=== PATIENT | female | born 1995 | race Caucasian/White ===

== ENCOUNTER → 2017-10-03 | Outpatient (CLI) | payer BC ==
[2017-10-03 15:03] LABS: BASOPHILS ABSOLUTE AUTO 0.05 K/mm3 (0.00-0.23); BASOPHILS PERCENT AUTO 1 % (0-2); EOSINOPHILS PERCENT AUTO 1 % (0-6); Hematocrit 44.7 % (33.0-51.0); Hemoglobin 14.8 g/dL (11.5-16.0); IMMATURE GRAN ABSOLUTE AUTO 0.03 K/mm3 (0.00-0.10); IMMATURE GRAN PERCENT AUTO 0 % (0-1); LYMPHOCYTES ABSOLUTE AUTO 2.53 K/mm3 (0.84-5.20); LYMPHOCYTES PERCENT AUTO 24 % (21-46); MONOCYTES ABSOLUTE AUTO 0.68 K/mm3 (0.16-1.47); MONOCYTES PERCENT AUTO 6 % (4-13); Mean Corpuscular HGB 29.1 pg (26.0-34.0); Mean Corpuscular HGB Conc 33.1 g/dL (31.5-36.5); Mean Corpuscular Volume 88 fL (80-100); Mean Platelet Volume 10.3 fL (9.1-12.4); NEUTROPHILS ABSOLUTE AUTO 7.28 K/mm3 (1.96-9.15); NEUTROPHILS PERCENT AUTO 68 % (41-73); Platelet Count 347 K/mm3 (150-400); RDW Standard Deviation 38.8 fL (35.1-46.3); Red Blood Cell Count 5.09 M/mm3 (3.80-5.20); White Blood Cell Count 10.67 K/mm3 (4.00-11.30)
== END | disposition home or self-care (01) ==
LOC: LAB SHORT 12:20 → LAB 12:20
PROVIDERS: Advanced Practice Midwife
DX: Z11.3 Encounter for screening for infections with a predominantly sexual mode of transmission (principal); R53.83 Other fatigue
CPT/HCPCS: 84443; 85025

== ENCOUNTER → 2017-10-14 | Outpatient (CLI) | payer BC ==
[2017-10-14 12:17] LABS: Source, Urine Clean Catch
[2017-10-14 13:36] LABS: Bilirubin, Urine Neg (Neg); Blood, Urine Neg (Neg); Glucose Qualitative, Urine Neg (Neg); Ketones, Urine Neg (Neg); Leukocyte Esterase, Urine Neg (Neg); Nitrite, Urine Neg (Neg); Protein, Urine Neg (Neg); Specific Gravity, Urine 1.005 (1.003-1.022); Urobilinogen, Urine NORM (Normal)
[2017-10-14 13:42] LABS: Appearance, Urine Clear (Clear); Color, Urine Yellow (P-Yellow)
== END ==
LOC: LAB 10:47 → LAB SHORT 10:47
PROVIDERS: Advanced Practice Midwife
DX: R30.0 Dysuria (principal)
CPT/HCPCS: 81003; 87086

== ENCOUNTER → 2017-11-25 | Outpatient (CLI) | payer BC | END | disposition home or self-care (01) | LOC: LAB SHORT 09:07 → LAB 09:07 | DX: J02.9 Acute pharyngitis, unspecified (principal); R59.9 Enlarged lymph nodes, unspecified | CPT/HCPCS: 87070 ==

== ENCOUNTER → 2019-07-12 | Outpatient (CLI) | payer BC | END | disposition home or self-care (01) | LOC: LAB 11:20 → LAB SHORT 11:20 | PROVIDERS: Advanced Practice Midwife | DX: Z01.419 Encounter for gynecological examination (general) (routine) without abnormal findings (principal) | CPT/HCPCS: 87624; 87625; G0123 ==

== ENCOUNTER → 2019-08-01 | Outpatient (CLI) | payer BC | END | disposition home or self-care (01) | LOC: PLD 08:57 → LAB SHORT 08:57 | DX: N72 Inflammatory disease of cervix uteri (principal) | CPT/HCPCS: 88305; 88342 ==

== ENCOUNTER → 2020-01-16 | Outpatient (CLI) | payer BC ==
[2020-01-16 13:53] LABS: Source, Urine Clean Catch
[2020-01-16 15:52] LABS: Bacteria Few /hpf; Red Blood Cells, Urine 0-2 /hpf (0-2); Squamous Epithelial Cells Few /hpf (Few); White Blood Cells, Urine 0-2 /hpf (0-5)
== END | disposition home or self-care (01) ==
LOC: LAB 09:09 → LAB SHORT 09:09
PROVIDERS: Obstetrics & Gynecology
DX: Z34.01 Encounter for supervision of normal first pregnancy, first trimester (principal)
CPT/HCPCS: 81015; 87086

== ENCOUNTER → 2020-03-11 | Outpatient (CLI) | payer BC ==
[~2020-03-11] MED LIST: MAGCHL64ER; PRENATAL TABLE1 EAC2 PO; Percocet 5-3251 EACH PO; Vitamin B-Comp1 EACH PO
[2020-03-13 03:11] LABS: CHLAMYDIA TRACHOMATIS, NAA Negative (Negative)
== END | disposition home or self-care (01) ==
LOC: LAB 13:07
PROVIDERS: Obstetrics & Gynecology
DX: Z11.3 Encounter for screening for infections with a predominantly sexual mode of transmission (principal)
CPT/HCPCS: 87491; 87591

== ENCOUNTER → 2020-07-10 | Outpatient (CLI) | payer BC ==
[2020-07-10 14:58] LABS: Source, Urine Clean Catch
[2020-07-10 17:23] LABS: Appearance, Urine Clear (Clear); Bilirubin, Urine Neg (Neg); Blood, Urine 1+ (Neg); Color, Urine Yellow (P-Yellow); Glucose Qualitative, Urine Neg (Neg); Ketones, Urine 2+ (Neg); Leukocyte Esterase, Urine 1+ (Neg); Nitrite, Urine Neg (Neg); Protein, Urine Neg (Neg); Urobilinogen, Urine NORM (Normal)
[2020-07-10 17:38] LABS: Bacteria Mod /hpf; Red Blood Cells, Urine 0-2 /hpf (0-2); Squamous Epithelial Cells Mod /hpf (Few); White Blood Cells, Urine 0-2 /hpf (0-5)
== END | disposition home or self-care (01) ==
LOC: LAB SHORT 14:55
PROVIDERS: Obstetrics & Gynecology
DX: O09.93 Supervision of high risk pregnancy, unspecified, third trimester (principal)
CPT/HCPCS: 81001; 87086

== ENCOUNTER → 2020-07-29 | Outpatient (CLI) | payer BC | END | disposition home or self-care (01) | LOC: LAB SHORT 16:16 → LAB 16:16 | DX: O09.93 Supervision of high risk pregnancy, unspecified, third trimester (principal) | CPT/HCPCS: 87081; 87150 ==

== ENCOUNTER 2020-08-20 06:06 | Inpatient (IN) | payer BC ==
[~2020-08-20] VITALS: Ht 172.7 cm; Wt 113.3 kg
[~2020-08-20 06:06] MED LIST changes: -Percocet 5-3251 EACH PO
[2020-08-20 06:53] LABS: BASOPHILS ABSOLUTE AUTO 0.04 K/mm3 (0.00-0.23); BASOPHILS PERCENT AUTO 0 % (0-2); EOSINOPHILS ABSOLUTE AUTO 0.07 K/mm3 (0.00-0.68); EOSINOPHILS PERCENT AUTO 1 % (0-6); Hematocrit 41.8 % (33.0-51.0); Hemoglobin 14.5 g/dL (11.5-16.0); IMMATURE GRAN ABSOLUTE AUTO 0.05 K/mm3 (0.00-0.10); IMMATURE GRAN PERCENT AUTO 1 % (0-1); LYMPHOCYTES ABSOLUTE AUTO 1.93 K/mm3 (0.84-5.20); LYMPHOCYTES PERCENT AUTO 21 % (21-46); MONOCYTES ABSOLUTE AUTO 0.91 K/mm3 (0.16-1.47); MONOCYTES PERCENT AUTO 10 % (4-13); Mean Corpuscular HGB 29.7 pg (26.0-34.0); Mean Corpuscular HGB Conc 34.7 g/dL (31.5-36.5); Mean Corpuscular Volume 86 fL (80-100); Mean Platelet Volume 11.2 fL (9.1-12.4); NEUTROPHILS ABSOLUTE AUTO 6.29 K/mm3 (1.96-9.15); NEUTROPHILS PERCENT AUTO 68 % (41-73); Platelet Count 268 K/mm3 (150-400); RDW Coefficient Variation 12.9 % (11.7-14.2); RDW Standard Deviation 40.1 fL (35.1-46.3); Red Blood Cell Count 4.89 M/mm3 (3.80-5.20); White Blood Cell Count 9.29 K/mm3 (4.00-11.30)
--- NOTE | 2020-08-20 08:34 | NUR ---
08/20/20 0834 Nathalia Whalen 0821 DELIVERY VIABLE FEMALE INFANT IN THE BREECH POSITION, WEIGHT 2640GM, 5# 13 OZ, HEAD 13.5 INCHES, CHEST 12 INCHES, LENGHT 19.5 INCHES, APGARS 9/9, UMBILICAL CORD BLOOD COLLECTED FOR TYPE AND RH GIVEN TO Koki CUENCA RN
--- NOTE | 2020-08-20 09:35 | NUR ---
EPIDURAL CATHETER LOCKED AWAITNG EPIDURAL ORDERS FROM DR GAINES, CURRENTLY RATES PAIN 6/10
[2020-08-21 05:31] LABS: Hematocrit 37.1 % (33.0-51.0); Hemoglobin 12.5 g/dL (11.5-16.0); Mean Corpuscular HGB 29.8 pg (26.0-34.0); Mean Corpuscular HGB Conc 33.7 g/dL (31.5-36.5); Mean Corpuscular Volume 89 fL (80-100); Mean Platelet Volume 10.9 fL (9.1-12.4); Platelet Count 181 K/mm3 (150-400); RDW Coefficient Variation 13.2 % (11.7-14.2); RDW Standard Deviation 42.9 fL (35.1-46.3); Red Blood Cell Count 4.19 M/mm3 (3.80-5.20); White Blood Cell Count 10.95 K/mm3 (4.00-11.30)
[2020-08-22] MEDS ORDERED: Percocet 5-3251 EACH PO (13:35)
--- NOTE | 2020-08-22 14:38 | NUR ---
DISCHARGE TEACHING COMPLETED. ANSWERED ALL QUESTIONS AND CONCERNS. IV REMOVED. PRESCRIPTION GIVEN TO PATIENT. DISCHARGED HOME, DRIVEN BY SO. ALL PERSONAL BELONGINGS RETURNED TO PATIENT.
--- NOTE | 2020-08-22 14:41 | NUR ---
PPFU SCHEDULED FOR 08/25/2020 AT 0900.
== END 2020-08-22 15:00 | disposition home or self-care (01) | DRG 788 ==
LOC: BC 06:06
PROVIDERS: ADMIT Obstetrics & Gynecology
PROC: 10D00Z1 Extraction of Products of Conception, Low, Open Approach (ICD-10-PCS; principal; 2020-08-20 07:30)
DX: O32.1XX0 Maternal care for breech presentation, not applicable or unspecified (principal); Z3A.39 39 weeks gestation of pregnancy; Z37.0 Single live birth; O24.410 Gestational diabetes mellitus in pregnancy, diet controlled; O99.214 Obesity complicating childbirth; E66.9 Obesity, unspecified; O34.13 Maternal care for benign tumor of corpus uteri, third trimester; D25.2 Subserosal leiomyoma of uterus
CPT/HCPCS: 36415; 82947; 85025; 85027; 86850; 86900; 86901; A9270; J0690; J1885; J2001; J2250; J2590; J2704; J2765; J3010; J7120

== ENCOUNTER → 2020-10-07 | Outpatient (CLI) | payer BC ==
[~2020-10-07] MED LIST changes: +Percocet 5-3251 EACH PO
== END | disposition home or self-care (01) ==
LOC: LAB SHORT 13:46 → LAB 13:46
PROVIDERS: Obstetrics & Gynecology
DX: Z01.419 Encounter for gynecological examination (general) (routine) without abnormal findings (principal)
CPT/HCPCS: G0123

== ENCOUNTER → 2021-10-29 | Outpatient (CLI) | payer BC ==
[2021-10-30 07:50] LABS: Candida species (DNA Probe) Negative (NEGATIVE); G. vaginalis (DNA Probe) Negative (NEGATIVE); T. vaginalis (DNA Probe) Negative (NEGATIVE)
== END | disposition home or self-care (01) ==
LOC: LAB SHORT 16:15 → LAB 16:15
PROVIDERS: Obstetrics & Gynecology
DX: Z01.419 Encounter for gynecological examination (general) (routine) without abnormal findings (principal); N89.8 Other specified noninflammatory disorders of vagina
CPT/HCPCS: 87480; 87510; 87660

== ENCOUNTER 2023-08-08 05:28 | Inpatient (IN) | payer BC ==
[~2023-08-08] VITALS: Ht 172.7 cm; Wt 129.5 kg
[2023-08-08] VITALS (17 sets, daily range): BP systolic 103–143; BP diastolic 60–83
[2023-08-08] MEDS ORDERED: Oxytocin 10 Unit / ML Vial IM SCH (05:55)
[2023-08-08] MEDS ORDERED: Lidocaine HCl 1% 30 ML SDV XX SCH (05:55)
[2023-08-08] MEDS ORDERED: LR Oxytocin 20 Units 1,000 ML IV SCH ×3 (05:55→09:05)
[2023-08-08] MEDS ORDERED: Lactated Ringer's 1,000 ML IV PRN (05:55)
[2023-08-08] MEDS ORDERED: Misoprostol 200 MCG Tab PR SCH (05:55)
[2023-08-08] MEDS ORDERED: Bupivacaine HCl 2.5 MG/ML 10ML P/F Injection XX SCH (05:55)
[2023-08-08] MEDS ORDERED: Metoclopramide HCl 5MG / ML 2ML Vial IV ONE (05:55)
[2023-08-08] MEDS ORDERED: Castor Oil 59.146 ML BTL TOP SCH (05:55)
[2023-08-08] MEDS ORDERED: Methylergonovine Maleate 0.2MG / ML 1ML Amp IM SCH (05:55)
[2023-08-08] MEDS ORDERED: Citric Acid/Sodium Citrate 30 ML BTL PO SCH (05:55)
[2023-08-08] MEDS ORDERED: Lactated Ringer's 1,000 ML IV SCH ×2 (05:55→09:05)
[2023-08-08] MEDS ORDERED: Bupivacaine 0.5% HCl 5 MG/ML 30MLVIAL XX SCH (05:55)
[2023-08-08 06:11] LABS: BASOPHILS ABSOLUTE AUTO 0.04 K/mm3 (0.00-0.23); BASOPHILS PERCENT AUTO 0 % (0-2); EOSINOPHILS ABSOLUTE AUTO 0.08 K/mm3 (0.00-0.68); EOSINOPHILS PERCENT AUTO 1 % (0-6); Hematocrit 39.1 % (33.0-51.0); IMMATURE GRAN ABSOLUTE AUTO 0.08 K/mm3 (0.00-0.10); IMMATURE GRAN PERCENT AUTO 1 % (0-1); LYMPHOCYTES ABSOLUTE AUTO 2.26 K/mm3 (0.84-5.20); LYMPHOCYTES PERCENT AUTO 21 % (21-46); MONOCYTES ABSOLUTE AUTO 0.96 K/mm3 (0.16-1.47); MONOCYTES PERCENT AUTO 9 % (4-13); Mean Corpuscular HGB 27.4 pg (26.0-34.0); Mean Corpuscular HGB Conc 33.2 g/dL (31.5-36.5); Mean Corpuscular Volume 82 fL (80-100); Mean Platelet Volume 10.4 fL (9.1-12.4); NEUTROPHILS ABSOLUTE AUTO 7.49 K/mm3 (1.96-9.15); NEUTROPHILS PERCENT AUTO 69 % (41-73); Platelet Count 267 K/mm3 (150-400); RDW Coefficient Variation 13.2 % (11.7-14.2); RDW Standard Deviation 39.3 fL (35.1-46.3); Red Blood Cell Count 4.75 M/mm3 (3.80-5.20); White Blood Cell Count 10.91 K/mm3 (4.00-11.30)
[2023-08-08] MEDS ORDERED: CeFAZolin Sodium 2,000 MG in NS 100 ML IV PRN (06:15)
[2023-08-08] MEDS ORDERED: FentaNYL Citrate 50 MCG/ML 2 ML Injection ONE (07:02)
[2023-08-08] MEDS ORDERED: Oxytocin 10 Unit / ML Vial ONE (07:02)
[2023-08-08] MEDS ORDERED: Dexamethasone Sod Phos 10 MG/ML 1ML VIAL ONE (07:02)
[2023-08-08] MEDS ORDERED: Ketorolac Tromethamine 30mg Vial ONE (07:02)
[2023-08-08] MEDS ORDERED: Ondansetron HCl 2 MG / ML 2ML Vial ONE (07:02)
[2023-08-08] MEDS ORDERED: CeFAZolin Sodium 3,000 MG in NS 100 ML IV PRN (07:15)
[2023-08-08] MEDS ORDERED: Lactated Ringer's 1,000 ML IV ONE (07:30)
--- NOTE | 2023-08-08 08:22 | NUR ---
08/08/23 0822 Pat Wynn DELIVERY OF VIABLE FEMALE INFANT AT 0814. APGARS 9/9. WEIGHT 3295 GM WEIGHT. MANUAL DELIVERY OF PLACENTA, COMPLETE.
[2023-08-08] MEDS ORDERED: DiphenhydrAMINE HCL 25 MG Cap PO PRN (08:50)
[2023-08-08] MEDS ORDERED: Simethicone 80 MG Chew PO PRN (08:50)
[2023-08-08] MEDS ORDERED: Morphine Sulfate 4 MG/1 ML Injection IV PRN (08:55)
[2023-08-08] MEDS ORDERED: Rho(D) Immune Globulin 300 MCG / SYR IM ONE (08:55)
[2023-08-08] MEDS ORDERED: OxyCODONE HCL 5 MG TAB PO PRN (08:55)
[2023-08-08] MEDS ORDERED: Lanolin Cream TOP PRN (08:55)
[2023-08-08] MEDS ORDERED: Promethazine HCl 25 MG Tab PO PRN (08:55)
[2023-08-08] MEDS ORDERED: Acetaminophen 500 MG Tab PO SCH (09:00)
[2023-08-08] MEDS ORDERED: Prenatal Vit/FE Fumarate/FA 1 Tab PO SCH (09:00)
[2023-08-08] MEDS ORDERED: Measles/Mumps/Rubella Vaccine 0.5 ML Vial SC ONE (09:00)
[2023-08-08] MEDS ORDERED: Metoclopramide HCl 10 MG Tab PO PRN (09:00)
[2023-08-08] MEDS ORDERED: Magnesium Hydroxide Conc 10 ML UDC PO PRN (09:00)
[2023-08-08] MEDS ORDERED: Methylergonovine Maleate 0.2MG / ML 1ML Amp IM PRN (09:00)
[2023-08-08] MEDS ORDERED: Carboprost Tromethamine 250 MCG/ML 1ML Amp IM PRN (09:00)
[2023-08-08] MEDS ORDERED: Ondansetron HCl 2 MG / ML 2ML Vial IV PRN ×2 (09:00→09:15)
[2023-08-08] MEDS ORDERED: Docusate Sodium 100 MG Cap PO SCH (09:00)
--- NOTE | 2023-08-08 09:09 | NUR ---
PT AWAKE AND ALERT. DENIES PAIN. DESIRES TO HOLD NB. NO COMPLAINTS AT THIS TIME. DECLINES ICE CHIPS.
[2023-08-08] MEDS ORDERED: FentaNYL Citrate 50 MCG/ML 2 ML Injection IV PRN ×2 (09:10→09:15)
[2023-08-08] MEDS ORDERED: HydrALAZINE HCl 20 MG / ML 1ML Vial IV PRN (09:15)
[2023-08-08] MEDS ORDERED: HYDROmorphone HCl/Pf 1MG SYR IV PRN ×2 (09:15)
[2023-08-08] MEDS ORDERED: Atropine Sulfate 0.1 MG/ML 10ML SYR IV PRN (09:35)
[2023-08-08] MEDS ORDERED: Ketorolac Tromethamine 30mg Vial IV SCH (10:00)
--- NOTE | 2023-08-08 13:07 | NUR ---
PT RESTING COMFORTABLY. DENIES PAIN. STS WITH NB.
--- NOTE | 2023-08-08 15:56 | NUR ---
PT RESTING COMFORTABLY. DESIRES TO TAKE A NAP AT THIS TIME. PT OFFERED TO GET OOB TO CHAIR IF SHE DESIRES AFTER HER NAP.
[2023-08-09] VITALS (7 sets, daily range): BP systolic 116–129; BP diastolic 60–76
[2023-08-09] MEDS ORDERED: Ketorolac Tromethamine 30mg Vial IV ONE (04:45)
[2023-08-09 06:07] LABS: BASOPHILS ABSOLUTE AUTO 0.06 K/mm3 (0.00-0.23); BASOPHILS PERCENT AUTO 0 % (0-2); EOSINOPHILS ABSOLUTE AUTO 0.04 K/mm3 (0.00-0.68); EOSINOPHILS PERCENT AUTO 0 % (0-6); Hematocrit 34.8 % (33.0-51.0); Hemoglobin 11.6 g/dL (11.5-16.0); IMMATURE GRAN ABSOLUTE AUTO 0.14 K/mm3 (0.00-0.10); IMMATURE GRAN PERCENT AUTO 1 % (0-1); LYMPHOCYTES ABSOLUTE AUTO 3.05 K/mm3 (0.84-5.20); LYMPHOCYTES PERCENT AUTO 21 % (21-46); MONOCYTES ABSOLUTE AUTO 1.45 K/mm3 (0.16-1.47); MONOCYTES PERCENT AUTO 10 % (4-13); Mean Corpuscular HGB 27.7 pg (26.0-34.0); Mean Corpuscular HGB Conc 33.3 g/dL (31.5-36.5); Mean Corpuscular Volume 83 fL (80-100); Mean Platelet Volume 10.3 fL (9.1-12.4); NEUTROPHILS ABSOLUTE AUTO 9.86 K/mm3 (1.96-9.15); NEUTROPHILS PERCENT AUTO 68 % (41-73); Platelet Count 235 K/mm3 (150-400); RDW Coefficient Variation 13.2 % (11.7-14.2); RDW Standard Deviation 39.8 fL (35.1-46.3); Red Blood Cell Count 4.19 M/mm3 (3.80-5.20)
[2023-08-09] MEDS ORDERED: Ibuprofen 400 MG Tab PO SCH (08:00)
--- NOTE | 2023-08-09 11:01 | NUR ---
PT DISCUSSING PLAN TO GO HOME THIS AFTERNOON IF SHE STILL FEELS WELL SHE DOES NOT. SCHEDULED TYLENOL GIVEN.
--- NOTE | 2023-08-09 11:27 | NUR ---
PEDS IN TALKING WITH PT AND FAMILY ABOUT PLAN TO TRANSPORT TO [facility]. PT APPROPRIATELY TEARFUL AND ASKING APPROPRIATE QUESTIONS. PT DESIRES D/C HOME.CALL OUT TO DR. MELISSA MAHAJAN TO GET AN ORDER.
--- NOTE | 2023-08-09 14:43 | NUR ---
TRANSPORT TEAM HERE. IN ROOM TALKING WITH PT AND . PT ESCORTED TO NURSERY TO SEE NB. PLAN TO FOLLOW BEHIND AMBULANCE. PT MEDICATED FOR PAIN PRIOR TO D/C. PT APPROPRIATE. PAIN 06/11. LIONEL SELF CARE WELL. VERY SUPPORTIVE AND HELPFUL. PT D/C.
--- NOTE | 2023-08-09 15:34 | NUR ---
PT RESTING COMFORTABLY IN BED. UNABLE TO GET NB TO BF. PT SET UP TO START PUMPING
[2023-08-10 05:29] VITALS: BP 119/68
[2023-08-10 08:16] VITALS: BP 125/80
--- NOTE | 2023-08-10 11:15 | NUR ---
Printed instructions reviewed by pt yesterday when it was thought they were going to discharge early. Denies any questions/concerns regarding instructions. Verbalized understanding of follow up and teaching. Pt d/c'd home ambulatory to care of .
[2023-08-10 11:19] VITALS: BP 137/70
--- NOTE | 2023-08-11 10:05 | NUR ---
UPDATED L&D SUMMARY DELIVERY DATE AND TIME PER EMR
== END 2023-08-10 11:30 | disposition home or self-care (01) | DRG 788 ==
LOC: BC 05:48
PROVIDERS: ADMIT Obstetrics & Gynecology
PROC: 10D00Z1 Extraction of Products of Conception, Low, Open Approach (ICD-10-PCS; principal; 2023-08-08 07:30)
DX: O34.211 Maternal care for low transverse scar from previous cesarean delivery (principal); O24.420 Gestational diabetes mellitus in childbirth, diet controlled; O32.1XX0 Maternal care for breech presentation, not applicable or unspecified; Z3A.39 39 weeks gestation of pregnancy; Z37.0 Single live birth; O99.214 Obesity complicating childbirth; Z98.890 Other specified postprocedural states
CPT/HCPCS: 36415; 82947; 85025; 86850; 86900; 86901; 86923; A9270; J0690; J1100; J1885; J2405; J2590; J2765; J3010; J7120

== ENCOUNTER → 2024-06-27 | Outpatient (CLI) | payer BC | LOC: LAB 15:47 → LAB SHORT 15:47 | PROVIDERS: Obstetrics & Gynecology | DX: Z01.419 Encounter for gynecological examination (general) (routine) without abnormal findings (principal) | CPT/HCPCS: G0123 ==